=== PATIENT | male | born 1935 | race Caucasian/White ===

== ENCOUNTER 2017-04-18 10:03 | Emergency (ER) | payer OTHER, MEDICARE ==
[~2017-04-18] VITALS: Ht 177.8 cm; Wt 96.2 kg
[~2017-04-18 10:03] MED LIST: ASPIRIN81 M2 PO; ATIVAN1 MG PO; AVANDIA8 MG PO; AVAPRO 150 MG150 MG PO; AVAPRO300 MG PO; CARDURA4 MG PO; KAPIDEX60 MG PO; LOPRESSOR 50 MG50 M1 PO; MIRALAX255 GM PO; MOBIC7.5 MG PO; NORVASC 5 MG TAB5 MG PO; OMEPRAZOLE 20 M20 MG PO; OMEPRAZOLE10 MG PO; SIMVASTATIN5 MG PO; ZOCOR5 MG PO
[2017-04-18] MEDS ORDERED: KEFLEX500 MG PO (10:50)
[2017-04-18] MEDS ORDERED: FLOMAX0.4 MG PO (10:50)
[2017-04-18] MEDS ORDERED: PROSCAR 5MG TABL5 MG PO (10:51)
[2017-04-18] MEDS ORDERED: AMBIEN 5 MG TABL5 M1 PO (10:51)
[2017-04-18] MEDS ORDERED: ELIQUIS5 MG PO (10:52)
[2017-04-18 11:04] LABS: BASOPHILS 0.6 % (0.0-2.0); EOSINOPHILS 0.6 % (0.0-3.0); HEMOGLOBIN 13.9 gm/dL (14.0-18.0); LYMPHOCYTES 21.1 % (24.0-44.0); MCH 29.8 pg (26.0-34.0); MCHC 33.2 g/dL (28.0-37.0); MCV 89.7 fL (80.0-100.0); MONOCYTES 5.5 % (1.0-8.0); PLATELET COUNT 150 thou/uL (150-400); POLYS 72.2 % (36.0-66.0); RBC 4.68 mil/uL (4.50-6.00); RDW 13.5 % (10.5-14.5); WBC 9.6 thou/uL (4.0-11.0)
[2017-04-18 11:05] LABS: MANUAL DIFF NO
[2017-04-18 11:21] LABS: APTT 35.1 Seconds (24.5-32.8); INR 1.1; PROTIME 11.1 Seconds (9.3-11.4)
[2017-04-18 11:24] LABS: ANION GAP 6 mmol/L (7-16); BUN 28 mg/dL (7-18); CALCIUM 9.3 mg/dL (8.5-10.1); CHLORIDE 107 mmol/L (98-107); CO2 28 mmol/L (21-32); CREATININE 1.3 mg/dL (0.7-1.3); GLUCOSE 109 mg/dL (74-106); POTASSIUM 5.3 mmol/L (3.5-5.1); SODIUM 141 mmol/L (136-145)
[2017-04-18 11:42] LABS: ALKALINE PHOSPHATASE 98 U/L (46-116); CK-MB MASS 2.5 ng/mL (<0.5-3.6); MAGNESIUM 1.8 mg/dL (1.8-2.4); NT-PRO BRAIN NAT PEPTIDE 1220 pg/mL (<300); SGOT 25 U/L (15-37); SGPT 22 U/L (30-65); TOTAL BILIRUBIN 0.6 mg/dL (<0.1-1.0); TOTAL PROTEIN 7.2 g/dL (6.4-8.2); TROPONIN-I < 0.04 ng/mL (<0.04-0.07)
[2017-04-18] MEDS ORDERED: VENTOLIN HFA 1818 GM INH (12:06)
== END 2017-04-18 12:07 | disposition home or self-care (01) ==
LOC: ER 10:03
PROVIDERS: Emergency Medicine
DX: R06.00 Dyspnea, unspecified (principal); I48.2 Chronic atrial fibrillation; E11.43 Type 2 diabetes mellitus with diabetic autonomic (poly)neuropathy; K31.84 Gastroparesis; M17.11 Unilateral primary osteoarthritis, right knee; Z87.891 Personal history of nicotine dependence

== ENCOUNTER 2017-07-03 14:44 | Emergency (ER) | payer OTHER, MEDICARE ==
[~2017-07-03] VITALS: Ht 177.8 cm; Wt 99.8 kg
[~2017-07-03 14:44] MED LIST changes: +AMBIEN 5 MG TABL5 M1 PO; +ELIQUIS5 MG PO; +FLOMAX0.4 MG PO; +KEFLEX500 MG PO; +PROSCAR 5MG TABL5 MG PO; +VENTOLIN HFA 1818 GM INH
[2017-07-03 15:16] LABS: URINE BILIRUBIN NEGATIVE (Negative); URINE BLOOD NEGATIVE (Negative); URINE COLOR YELLOW; URINE GLUCOSE-RANDOM* NEGATIVE (Negative); URINE KETONES NEGATIVE (Negative); URINE LEUKOCYTES-REFLEX NEGATIVE (Negative); URINE PROTEIN (DIPSTICK) NEGATIVE (Negative); URINE UROBILINOGEN 0.2 E.U./dl (0.2-1.0)
[2017-07-03] MEDS ORDERED: MACROBID 100 M100 M1 PO (15:36)
== END 2017-07-03 15:45 | disposition home or self-care (01) ==
LOC: ER 14:44
PROVIDERS: Physician Assistant
DX: N39.0 Urinary tract infection, site not specified (principal); E11.43 Type 2 diabetes mellitus with diabetic autonomic (poly)neuropathy; K31.84 Gastroparesis; M19.90 Unspecified osteoarthritis, unspecified site; I48.91 Unspecified atrial fibrillation; Z87.891 Personal history of nicotine dependence

== ENCOUNTER 2020-07-26 11:58 | Emergency (ER) | payer OTHER, MEDICARE ==
[~2020-07-26] VITALS: Ht 182.9 cm; Wt 77.1 kg
[~2020-07-26 11:58] MED LIST changes: +MACROBID 100 M100 M1 PO
[2020-07-26] MEDS ORDERED: CIPRO500 M1 PO (13:48)
[2020-07-26] MEDS ORDERED: GABAPENTIN100 MG PO (13:49)
[2020-07-26 14:14] LABS: ABSOLUTE NEUTROPHILS 5.5 thou/uL (1.4-8.2); BASOPHILS 0.5 % (0.0-2.0); EOSINOPHILS 1.7 % (0.0-3.0); HEMATOCRIT 35.2 % (42.0-52.0); HEMOGLOBIN 10.9 gm/dL (14.0-18.0); LYMPHOCYTES 20.5 % (24.0-44.0); MCV 83.8 fL (80.0-100.0); MONOCYTES 8.6 % (1.0-8.0); PLATELET COUNT 172 thou/uL (150-400); POLYS 68.7 % (36.0-66.0); RDW 28.1 % (10.5-14.5)
[2020-07-26 14:22] LABS: CALCIUM 8.5 mg/dL (8.5-10.1); POTASSIUM 4.5 mmol/L (3.5-5.1)
[2020-07-26 14:34] LABS: ALBUMIN 3.6 g/dL (3.4-5.0); TOTAL BILIRUBIN 0.6 mg/dL (0.2-1.0); TOTAL PROTEIN 6.5 g/dL (6.4-8.2)
[2020-07-26 14:49] LABS: ANISOCYTOSIS 3+; SCHISTOCYTES FEW
[2020-07-26 14:50] LABS: MICROCYTES 1+
[2020-07-26 14:51] LABS: MACROCYTES 1+; POLYCHROMASIA OCCASIONAL
[2020-07-26 14:52] LABS: OVALOCYTES OCCASIONAL; POIKILOCYTOSIS 1+
--- NOTE | 2020-07-26 15:54 | EKG ---
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 : 1935 Requested By: Garry Lopez Order Number: [id number] MD: Nik Schaffer Measurements Intervals [place] Rate: 91 P: NC: QRS: 42 QRSD: 137 T: -53 QT: 420 QTc: 517 Interpretive Statements Atrial fibrillation Right bundle branch block Nonspecific repol abnormality, lateral leads Compared to ECG 03/07/2010 09:50:45 Right bundle-branch block now present Early repolarization now present Sinus rhythm no longer present Electronically Signed On 07-26-2020 15:54:19 CDT by Nik Schaffer [email or web address] <ELECTRONICALLY SIGNED> By: Nik Schaffer MD, FAC 07/26/20 1554 1453 1453 Nik Schaffer MD, [facility] /EPI
[2020-07-26 16:42] LABS: URINE BILIRUBIN NEGATIVE (Negative); URINE BLOOD 3+ (Negative); URINE CLARITY CLEAR; URINE COLOR YELLOW; URINE GLUCOSE-RANDOM* NEGATIVE (Negative); URINE KETONES NEGATIVE (Negative); URINE LEUKOCYTES-REFLEX NEGATIVE (Negative); URINE NITRITE-REFLEX NEGATIVE (Negative); URINE PROTEIN (DIPSTICK) 1+ (Negative); URINE SPECIFIC GRAVITY 1.025 (1.005-1.035); URINE UROBILINOGEN 0.2 E.U./dl (0.2-1.0)
[2020-07-26 16:48] LABS: MUCUS 0-3 Light strn/LPF (None Seen); URINE RBC >20 Many /HPF (0-2)
[2020-07-26 16:49] LABS: CRYSTALS None Seen /LPF (None Seen); HYALINE CASTS 0-3 Few /LPF (None Seen); SQUAMOUS 4-10 Moderate /LPF (0-3); URINE WBC-REFLEX 0-5 Rare /HPF (0-5)
[2020-07-26 18:41] VITALS: BP 149/95
== END 2020-07-26 18:00 | disposition home or self-care (01) ==
LOC: ER 11:58
PROVIDERS: Emergency Medicine
DX: M79.10 Myalgia, unspecified site (principal); E11.9 Type 2 diabetes mellitus without complications; G89.29 Other chronic pain; M25.561 Pain in right knee; I48.91 Unspecified atrial fibrillation; Z79.2 Long term (current) use of antibiotics; Z79.899 Other long term (current) drug therapy